=== PATIENT | male | born 1995 | race Caucasian/White ===

== ENCOUNTER 2024-02-12 17:49 | Emergency (ER) | payer OTHER, BC ==
[~2024-02-12] VITALS: Ht 180.3 cm; Wt 72.6 kg
[~2024-02-12 17:49] MED LIST: ALBU90I INH; AMOCLA400S PO; AMOX250CH PO; AMOX25SU PO; AMOX50SU PO; CEPH500 PO; CODACE30 PO; CODACEE120 PO; CODGUAEL PO; CRUTCH2 USE; DEXGUASY; DIPHTC TOP; Hair, Skin & N1 EACH PO; IBUP400 PO; LORA10ER PO; METPRE4DP PO; MUPI2TO TOP; PRED20 PO; [UNRECOGNIZED DRUG - OTHER]
== END 2024-02-12 18:48 | disposition home or self-care (01) ==
LOC: ER 17:49
DX: S13.4XXA Sprain of ligaments of cervical spine, initial encounter (principal); F17.220 Nicotine dependence, chewing tobacco, uncomplicated; V49.49XA Driver injured in collision with other motor vehicles in traffic accident, initial encounter
CPT/HCPCS: 99283